=== PATIENT | female | born 1965 | race Caucasian/White ===

== ENCOUNTER → 2025-01-01 | Outpatient (CLI) | payer OTHER, SELFPAY ==
--- NOTE | 2025-01-01 13:02 | XR_ITS ---
EXAMINATION: Cervical spine, 5 views Technique: Cervical spine AP, AP odontoid, lateral, bilateral obliques, 5 views Exam date and time: January 01, 2025 1448 hrs. Indications: Neck pain 20 years getting worse. Findings: Reversal normal cervical lordosis. No cervical fracture Intact odontoid Advanced degenerative disc disease C5-C6, C6-C7 with moderate bilateral neural foraminal stenosis Impression: Advanced degenerative disc disease C5-C6, C6-C7
== END | disposition home or self-care (01) ==
LOC: CDIM 12:51
PROVIDERS: PCP Family Medicine; Referring Provider Nurse Practitioner Family; Visit Provider Nurse Practitioner Family
DX: M50.322 Other cervical disc degeneration at C5-C6 level (principal)
CPT/HCPCS: 72050

== ENCOUNTER → 2025-06-08 | Outpatient (CLI) | payer OTHER, SELFPAY ==
[2025-06-08 16:10] LABS: Free T4 (Free Thyroxine) 1.31 ng/dL (0.89-1.76); Thyroid Stimulating Hormone 1.46 uIU/mL (0.55-4.78)
== END | disposition home or self-care (01) ==
LOC: COPL 14:57
PROVIDERS: PCP Family Medicine; Referring Provider Nurse Practitioner Family; Visit Provider Nurse Practitioner Family
DX: M25.531 Pain in right wrist (principal)
CPT/HCPCS: 36415; 84439; 84443